=== PATIENT | male | born 1960 | race Caucasian/White ===

== ENCOUNTER → 2021-04-13 | Day surgery (SDC) | payer BC ==
[~2021-04-13] MED LIST: CELEBREX200 MG PO; CRESTOR10 MG PO; FENTANYL CITRATE/PF 100MCG/2 ML INJ ONE; FLUOXETINE HCL20 MG PO; LIDOCAINE HCL 2% LOCAL INJ 5 ML SDV VIAL INJ ONE; LISINOPRIL-HCT1 EACH PO; METOPROLOL SUCC50 MG PO; MIDAZOLAM HCL 2 MG/2 ML VIAL ONE; VERAPAMIL ER120 MG PO; ZETIA10 MG PO
[2021-04-13 12:25] VITALS: BP 113/79
== END | disposition home or self-care (01) ==
LOC: OR 09:00
PROVIDERS: ATTEND Internal Medicine Gastroenterology
DX: D12.4 Benign neoplasm of descending colon (principal); K57.30 Diverticulosis of large intestine without perforation or abscess without bleeding; I10 Essential (primary) hypertension; Z68.28 Body mass index [BMI] 28.0-28.9, adult; Z01.810 Encounter for preprocedural cardiovascular examination; K64.8 Other hemorrhoids
CPT/HCPCS: 45384; 45385; 93005; J2001; J2250; J3010; 45378